=== PATIENT | male | born 1945 | race Caucasian/White ===

== ENCOUNTER 2017-09-18 22:28 | Emergency (ER) | payer OTHER, BC ==
[2017-09-18] MEDS ORDERED: IPRATROPIUM/ALBUTEROL 3 ML DEYVIAL IH ONE (22:39)
[2017-09-18] MEDS ORDERED: NS 1,000 ML IV ONE (23:25)
--- NOTE | 2017-09-18 23:32 | CPEKG ---
Heart Rate: 98 RR Interval: 612 P-R Interval: 168 QRSD Interval: 90 QT Interval: 360 QTC Interval: 460 P [place]: 52 QRS Dunnigan: -31 T Wave Dunnigan: 62 EKG Severity - ABNORMAL ECG - EKG Impression: SINUS RHYTHM EKG Impression: LEFT AXIS DEVIATION EKG Impression: CONSIDER ANTEROSEPTAL INFARCT Electronically Signed By: Gerhard Mccallum 21-Sep-2017 08:31:12
--- NOTE | 2017-09-19 00:07 | EDPHY ---
H & P Stated Complaint: SOB Time Seen by Provider: 09/18/17 22:59 HPI/ROS: 72 yo M with hx of CAD with 2 stents, asthma, seasonal allergies, diabetes mellitus type 2 on insulin, hypertension and hyperlipidemia. Pt lives in [place] and came to [place] for a family wedding, via [place]. He arrived on , 5 days ago in [place] and felt short of breath the first day, on Monday, he drove up [place], felt so bad had to let his drive part way, he states when he got to the [place] of [place] he began to have a cough. The next day he was to go to the wedding but felt very short of breath , felt it was his asthma, and went to an urgent care where he had a duoneb and a shot of steroids, he felt markedly improved and went to the festivities. The next day he felt ok and then today he travelled to [place] and again began coughing and felt short of breath. He denies leg pain or leg swelling. No prior hx of blood clot. Review of systems As per HPI General no fever no chills no weakness, positive fatigue HEENT no eye pain no eye discharge. No eye redness, no sore throat Respiratory positive cough positive shortness of breath Cardiac no chest pain, no peripheral edema GI no abdominal pain, no diarrhea, no constipation, positive nausea, no vomiting no flank pain, no hematuria, no dysuria Musculoskeletal no myalgias, no joint pain Heme no easy bruising, no easy bleeding Endo no polyuria, no polydipsia Skin no rashes, no pruritus Neuro no syncope, no dizziness, no headaches Psych is no suicidal ideation, no homicidal ideation Source: Patient, Family Exam Limitations: No limitations - Personal History Current Tetanus/Diphtheria Vaccine: Unsure Current Tetanus Diphtheria and Acellular Pertussis (TDAP): Unsure - Medical/Surgical History Hx Asthma: Yes Hx Chronic Respiratory Disease: Yes Hx Diabetes: Yes Hx Cardiac Disease: Yes Hx Renal Disease: No Hx Cirrhosis: No Hx Alcoholism: No Hx HIV/AIDS: No Hx Splenectomy or Spleen Trauma: No Other PMH: Stents x2, VA x2, DM2, hypercholesterolemia, HTN - Family History Significant Family History: No pertinent family hx - Social History Smoking Status: Never smoked Alcohol Use: Occasionally Drug Use: None - Physical Exam Exam: 72-year-old male Alert and oriented nontoxic appearance, no acute distress afebrile Atraumatic normocephalic Extraocular muscles intact, anicteric Nares mild yellowish discharge Oropharynx mild erythema no tonsillar swelling no exudate no uvular deviation, tolerating own secretions Neck supple no lymphadenopathy Lungs scattered wheeze , decreased breath sounds at left base Heart regular rate and rhythm Abdomen normoactive bowel sounds soft nontender Extremities no cyanosis clubbing or edema Skin no rash Constitutional: Initial Vital Signs Temperature (C) 37.3 C 09/18/17 22:42 Heart Rate 96 09/18/17 22:42 Respiratory Rate 20 09/18/17 22:42 Blood Pressure 142/69 H 09/18/17 22:42 O2 Sat (%) 89 L 09/18/17 22:42 O2 Delivery Mode Room Air Allergies/Adverse Reactions: mold Allergy (Verified 09/18/17 22:46) tree and shrub pollen Allergy (Verified 09/18/17 22:46) Home Medications: Medication Instructions Recorded Albuterol 09/18/17 Aspirin 81mg (*) 09/18/17 Claritin 09/18/17 Crestor 09/18/17 FOLIC ACID 09/18/17 Losartan Potassium 09/18/17 Methotrexate 09/18/17 Singulair 09/18/17 Spiriva Inhaler (RX) 09/18/17 levOFLOXACIN [levAQUIN (*)] 750 mg PO DAILY 5 Days #5 tab 09/19/17 predniSONE 40 mg PO DAILY 4 Days #8 tablet 09/19/17 Medical Decision Making - Diagnostics Imaging Results: Imaging Impressions Chest X-Ray 09/18/17 23:29 Impression: Moderate bronchitis with possible early left lower lobe pneumonia. ED Course/Re-evaluation: Pt seen and evaluated for shortness of breath, wheezing. Chest x-ray Bronchitis, early left lower lobe infiltrate CBC Elevated white blood cell count 13 D-dimer neg Troponin within normal limits BNP wnl CMP glucose elevated 246 Patient given DuoNeb, Solu-Medrol 125 mg, 1 L normal saline. Patient also given Levaquin 750 mg IV piggyback for early pneumonia impression early pneumonia reactive airway intolerance altitude Plan Levaquin x 5 days Prednisone burst discharge follow up with pcp upon return to [place] - Data Points Laboratory Results: 06/25/18 06/25/18 06/25/18 23:59 23:35 23:21 PT INR APTT D-Dimer POC Sodium 135 mEq/L mEq/L (135-145) POC Potassium 3.6 mEq/L mEq/L (3.3-5.0) POC Chloride 99.0 mEq/L mEq/L (97-110) POC Total CO2 25 mEq/L mEq/L (22-31) POC BUN 27 mg/dL H mg/dL (7-23) POC Creatinine 1.1 mg/dL mg/dL (0.7-1.3) POC Glucose 241 mg/dL H mg/dL (70-100) POC Calcium 9.1 mg/dL mg/dL (8.5-10.4) Magnesium 1.9 mg/dL mg/dL (1.6-2.3) POC Total Bilirubin 0.5 mg/dL mg/dL (0.1-1.4) POC AST 33 IU/L IU/L (17-59) POC ALT 34 IU/L IU/L (21-72) POC Alk Phosphatase 41 IU/L IU/L (38-126) POC Troponin I 0.03 ng/mL ng/mL (0.00-0.08) NT-Pro-B Natriuret Pep 268 pg/mL H pg/mL (0-125) POC Total Protein 7.2 g/dL g/dL (6.3-8.2) POC Albumin 3.6 g/dL g/dL (3.5-5.0) 09/18/17 23:20 PT 13.7 SEC SEC (12.0-15.0) INR 1.03 (0.83-1.16) APTT 28.1 SEC SEC (23.0-38.0) D-Dimer < 0.27 ug/mLFEU ug/mLFEU (0.00-0.50) POC Sodium POC Potassium POC Chloride POC Total CO2 POC BUN POC Creatinine POC Glucose POC Calcium Magnesium POC Total Bilirubin POC AST POC ALT POC Alk Phosphatase POC Troponin I NT-Pro-B Natriuret Pep POC Total Protein POC Albumin Medications Given: Discontinued Medications Albuterol (Proventil Neb) 3 ml IH EDNOW ONE Stop: 09/19/17 00:34 Last Admin: 09/19/17 00:48 Dose: 3 ml Albuterol/Ipratropium (Duoneb) 3 ml IH EDNOW ONE Stop: 09/18/17 22:40 Last Admin: 09/18/17 22:48 Dose: 3 ml Sodium Chloride (Ns) 1,000 mls @ 0 mls/hr IV ONCE ONE PRN Reason: Wide Open Stop: 09/18/17 23:26 Last Admin: 09/18/17 23:38 Dose: 1,000 mls Levofloxacin/Dextrose (Levaquin 750 Mg (Premix)) 150 mls @ 100 mls/hr IV EDNOW ONE PRN Reason: Protocol Stop: 09/19/17 01:59 Last Admin: 09/19/17 00:40 Dose: 150 mls Sodium Chloride (Ns) 500 mls @ 0 mls/hr IV ONCE ONE PRN Reason: Wide Open Stop: 09/19/17 00:37 Last Admin: 09/19/17 00:49 Dose: 500 mls Methylprednisolone Sodium Succinate (Solu-Medrol) 125 mg IVP EDNOW ONE Stop: 09/19/17 00:34 Last Admin: 09/19/17 00:49 Dose: 125 mg Point of Care Test Results: CBC CBC Collection Date 09/18/17 CBC Collection Time 23:27 WBC 13.0 RBC 4.49 HGB 14.4 HCT 42.1 PLT 163 Neut # 10.9 Neut 83.7 LYMPH # 1.0 LYMPH 7.9 Other WBC # 1.1 Other WBC 8.4 MCV 93.8 Chemistry 09/18/17 09/18/17 23:59 23:35 POC Sodium 135 mEq/L mEq/L (135-145) POC Potassium 3.6 mEq/L mEq/L (3.3-5.0) POC Chloride 99.0 mEq/L mEq/L (97-110) POC Total CO2 25 mEq/L mEq/L (22-31) POC BUN 27 mg/dL H mg/dL (7-23) POC Creatinine 1.1 mg/dL mg/dL (0.7-1.3) POC Glucose 241 mg/dL H mg/dL (70-100) POC Calcium 9.1 mg/dL mg/dL (8.5-10.4) POC Total Bilirubin 0.5 mg/dL mg/dL (0.1-1.4) POC AST 33 IU/L IU/L (17-59) POC ALT 34 IU/L IU/L (21-72) POC Alk Phosphatase 41 IU/L IU/L (38-126) POC Troponin I 0.03 ng/mL ng/mL (0.00-0.08) POC Total Protein 7.2 g/dL g/dL (6.3-8.2) POC Albumin 3.6 g/dL g/dL (3.5-5.0) Departure - Departure Disposition: Home, Routine, Self-Care Clinical Impression: Pneumonia, Exacerbation of asthma, Hyperglycemia due to type 2 diabetes mellitus Condition: Good Instructions: Asthma (ED), Community Acquired Pneumonia (ED) Referrals: NONE *PRIMARY CARE P,. [Primary Care Provider] - As per Instructions Prescriptions: levOFLOXACIN [levAQUIN (*)] 750 mg PO DAILY 5 Days #5 tab predniSONE 40 mg PO DAILY 4 Days #8 tablet
[2017-09-19] MEDS ORDERED: ALBUTEROL 3 ML DEYVIAL IH ONE (00:33)
[2017-09-19] MEDS ORDERED: methylPREDNISolone SOD SUCC 125 MG/2 ML VIAL IVP ONE (00:33)
[2017-09-19] MEDS ORDERED: NS 500 ML IV ONE (00:36)
[2017-09-19 01:12] LABS: INR 1.03 (0.83-1.16); PROTIME(PATIENT) 13.7 SEC (12.0-15.0)
[2017-09-19 02:08] VITALS: BP 116/68
== END 2017-09-19 02:15 | disposition home or self-care (01) ==
LOC: CED 22:28
DX: J45.901 Unspecified asthma with (acute) exacerbation (principal); E11.65 Type 2 diabetes mellitus with hyperglycemia; J18.9 Pneumonia, unspecified organism; I25.10 Atherosclerotic heart disease of native coronary artery without angina pectoris; I25.2 Old myocardial infarction; I10 Essential (primary) hypertension; Z79.82 Long term (current) use of aspirin
CPT/HCPCS: 71046; 93005; 96361; 96365; 96375; 99285; J1956; J2930; J7613; 80053-PO; 84484-PO